=== PATIENT | female | born 1995 | race Caucasian/White ===

== ENCOUNTER 2019-12-16 22:39 | Day surgery (SDC) | payer OTHER ==
[2019-12-16 23:17] VITALS: BP 130/69; TEMP 98.5; BMI 36.1
[2019-12-16] MEDS ORDERED: hydrALAZINE 20 MG/ML VIAL SLOW IVP PRN (23:37)
[2019-12-17 00:14] LABS: Bilirubin Negative (Negative); Blood, Urine Small (Negative); Glucose, Urine (Dipstick) Negative (Negative); Leukocyte Negative (Negative); Nitrite Negative (Negative); Protein, Urine (Dipstick) Negative (Neg-Trace)
[2019-12-17 00:16] LABS: Clarity Clear (Clear)
[2019-12-17 00:20] LABS: Bacteria/HPF 3+ HPF (None Seen); RBC/HPF 0-3 HPF (0-3); Squamous Epithelial 0-3 HPF (0-3)
--- NOTE | 2019-12-17 00:41 | PDOC.FPROB ---
FMR OB H&P: HPI - History of Present Illness Chief Complaint: Brown Discharge Indentification: 24 yo @ 35 wks History of Present Illness: 24 yo comes in with concern of brown discharge when wiping today. Reports having some back pain as well. Reports FM. Denies any ctx. Denies any LOF. Denies any increased urinary frequency or burning with urination. Denies any fever or chills. Denies any n/v. Pt reports being checked thursday. Denies any recent sexual activity Primary Care Physician: Alex FMR OB H&P: Current - Care : 3 Para: 2 Gestational age: 35 wks - OB Labs Blood type: O RH: positive Antibody Screen: negative HIV: negative RPR: negative HepBsAg: negative Rubella: immune Quad screen: unknown Urine drug screen: not done Gonorrhea: negative Chlamydia: negative Pap Smear: normal 1 hour gtt: 132 FMR OB H&P: History - Past Medical History PMH: None - OB History OB History: 2 term - [employer] History [employer] History: Denies any hx of abnormal paps or STD - Surgical History Sx History: Denies - Social History Social History: Denies any smoking, drinking or illicit drug use - Family History Family History: Noncontributory FMR OB H&P: Medications - Current Home Medications: Medication Instructions Recorded Confirmed Type No122/Iron/Folic Acid 1 each PO DAILY 12/16/19 12/16/19 History [ Multi Tablet] Clotrimazole 2% 3 Day Vag Cr 1 appful VAG BID 3 Days #1 tube 12/17/19 Rx [Clotrimazole 2% 3 Day Vaginal Cream] Allergies/Adverse Reactions: Allergies Allergy/AdvReac Type Severity Reaction Status Date / Time No Known Allergies Allergy Verified 12/16/19 23:07 FMR OB H&P: ROS - Review of Systems General: denies: fever/chills, weight/appetite/sleep changes, night sweats ENT: denies: nasal congestion, rhinorrhea Respiratory: denies: cough, congestion, shortness of breath Gastrointestinal: denies: abdominal pain, cramping, nausea, vomiting, diarrhea, constipation Genitourinary (Female): reports: vaginal discharge. denies: incontinence, dysuria, hematuria, vaginal pain, vaginal bleeding, contractions, vaginal pressure Musculoskeletal: denies: pain, tenderness Integumentary: denies: itching, rash Psychological: denies: depression, anxiety FMR OB H&P: Vital Signs - Maternal Vital signs: Vital Signs - First Documented Temp Pulse Resp BP 98.5 F 87 18 130/69 12/16/19 23:05 12/16/19 23:05 12/16/19 23:05 12/16/19 23:05 - Heart Tones Baseline: 140 Variability: moderate Acceleration: present Deceleration: absent Category: category 1 [place] contractions every: None noted FMR OB H&P: Physical Exam - Physical Exam General: NAD, awake, alert and oriented HEENT: normocephalic and atraumatic, grossly normal vision, grossly normal hearing Neck: supple, FROM, trachea midline Heart: RRR, normal S1/S2, no murmurs/rubs/gallops, no edema General: CTAB, no respiratory distress, no wheezing Abdomen: soft, gravid, non-tender, bowel sound present, no masses Musculoskeletal: normal gait and station, FROM in all four extremities Neurological: sensation to pain,touch and proprioception grossly normal Skin: no rash, good tugor, capillary refill <2 seconds Psychiatric: intact recent and remote memory, normal mood and affect - Pelvic Exam Cervix: no masses, no lesions, no blood Deviation from normal: Yellow-brown, odorous discharge noted. No active bleeding noted. FMR OB H&P: Results - Labs Lab results: Laboratory Results - last 24 hr 12/17/19 00:08 Urine Color Yellow Urine Clarity Clear Urine pH 6.5 Ur Specific [place] 1.015 Urine Protein Negative Urine Glucose (UA) Negative Urine Ketones Negative Urine Blood Small A Urine Nitrite Negative Urine Bilirubin Negative Urine Urobilinogen 1.0 Ur Leukocyte Esterase Negative Urine RBC 0-3 Urine WBC 4-6 A Ur Squamous Epith Cells 0-3 Urine Bacteria 3+ A FMR OB H&P: A/P - Problem List (1) Status: Acute (2) Vaginitis Status: Acute Code(s): N76.0 - ACUTE VAGINITIS Disposition: -Cat 1 strip. No ctx or decels noted -Urinalysis ordered due to back pain. Will tx as needed. No CVA tenderness noted Vaginitis -Yellow-brown odorous discharge noted. Likely yeast infection. -VP3 obtained. Will tx as needed. -Px clotrimazole at this time. Discussion: Date/Time: 12/17/19 0039 This H&P was discussed with [] and [] who agree with the above documentation and plan. Addendum - Attending - Attending Attestation Date/Time: 12/17/19 0625 I personally evaluated the patient and discussed the management with Dr. Cr. I agree with the History, Examination, Assessment and Plan documented above.
[2019-12-17] MEDS ORDERED: FLU VACC QS2019-20(6MOS UP)/PF 60 MCG/0.5 ML SYRINGE IM ONE (09:00)
== END 2019-12-17 00:30 | disposition home or self-care (01) ==
LOC: L&D/OP 22:39
PROVIDERS: ATTEND Obstetrics & Gynecology
DX: O23.593 Infection of other part of genital tract in pregnancy, third trimester (principal); Z3A.35 35 weeks gestation of pregnancy
CPT/HCPCS: 81003; 81015; 87480; 87510; 87660; 99285

== ENCOUNTER 2020-01-03 05:30 | Inpatient (IN) | payer OTHER ==
--- NOTE | 2020-01-02 20:48 | PDOC.LDHP ---
Labor and Delivery H&P Chief complaint: scheduled induction HPI: 24 y/o at 37 and 4 weeks with GHTN for term medical induction. Current gestational age (weeks): 37 Due date: 01/20/20 Grav: 3 Para: 2 Current complications: gestational hypertension Abnormal US findings: No Current medications: pre- vitamins Allergies/Adverse Reactions: Allergies Allergy/AdvReac Type Severity Reaction Status Date / Time No Known Allergies Allergy Verified 12/25/19 11:20 Social history: none - Physical Exam Vital signs reviewed and normal: yes General: NAD, resting Heart: RRR Lungs: CTAB Abdomen: gravid Extremeties: no edema FHT: category 1 - Assessment L&D Assessment: medically indicated induction - Plan Plan: admit to L&D, cervical ripening
[~2020-01-03 05:30] MED LIST: Acetaminophen 500 MG TAB PO PRN; Butorphanol Tartrate 1 MG/ML VIAL SLOW IVP PRN; Docusate 100 MG CAP PO PRN; Lactated Ringer's 1,000 ML IV SCH; NS / Oxytocin 40 units/1000ml 1,000 ML IV PRN; NS w/ Oxytocin 10 units 500 ML IV SCH; Ondansetron PF 4 MG/2 ML Vial IVP PRN; Promethazine HCl 25 MG/ML VIAL IM PRN
[2020-01-03] MEDS ORDERED: Carboprost 250 MCG/ML AMP IM PRN (16:05)
[2020-01-03] MEDS ORDERED: hydrALAZINE 20 MG/ML VIAL SLOW IVP PRN ×2 (16:06→23:37)
[2020-01-03] MEDS ORDERED: HYDROcodone/Acetaminophen 5/325 mg Tablet PO PRN ×3 (16:07→23:37)
[2020-01-03] MEDS ORDERED: Lidocaine 1% (PF) 30 ML VIAL SC PRN (16:08)
[2020-01-03 17:01] VITALS: BMI 36.8
[2020-01-03] MEDS ORDERED: Fentanyl 4 mcg/Bup 0.1% Cadd 100 ML ONE (17:16)
[2020-01-03 17:19] LABS: Hemoglobin 11.6 g/dL (12.0-16.0); Mean Corpuscular HGB CONC 34.1 g/dL (32.0-36.0); Mean Corpuscular Hemoglobin 28.2 pg (27.0-31.0); Mean Corpuscular Volume 82.7 fL (78.0-98.0); Mean Platelet Volume 10.3 fL (7.4-10.4); Platelet Count 168 thou/uL (130-400); RBC Distribution Width 14.2 % (11.5-14.5); Red Blood Cell (RBC) Count 4.12 mill/uL (4.20-5.40); White Blood Cell (WBC) Count 9.2 thou/uL (4.8-10.8)
[2020-01-03 17:52] LABS: HBSAg Index 0.27 S/CO (0-0.99); Hep B Surf Ag Non-Reactive S/CO (NonReactive); Syphilis Antibody Nonreactive (Nonreactive); Syphilis Antibody Index 0.02 S/CO (<1.00 Non-Reactive)
[2020-01-03] MEDS: NS / Oxytocin 40 units/1000ml 1,000 ML IV SCH ×2 (21:20→22:30)
[2020-01-03] MEDS ORDERED: Misoprostol 200 MCG TAB ONE ×2 (21:33→21:34)
[2020-01-03] MEDS ORDERED: Milk Of Magnesia 30 ML UDCUP PO PRN (23:37)
[2020-01-03] MEDS ORDERED: Lanolin Ointment 7 GM TUBE TOP PRN (23:37)
[2020-01-03] MEDS ORDERED: Benzocaine-Menthol 82.5 ML CAN TOP PRN (23:37)
[2020-01-03] MEDS ORDERED: Zolpidem Tartrate 5 MG TAB PO PRN (23:37)
[2020-01-03] MEDS ORDERED: Methylergonovine 0.2 MG/ML VIAL IM PRN (23:37)
[2020-01-03] MEDS ORDERED: diphenhydrAMINE 25 MG CAP PO PRN (23:37)
[2020-01-03] MEDS ORDERED: Bisacodyl 10 MG SUPP PR PRN (23:37)
[2020-01-03] MEDS ORDERED: Promethazine HCl 25 MG/ML VIAL IM PRN (23:37)
[2020-01-03] MEDS ORDERED: Preparation H Ointment 28 GM TUBE PR PRN (23:37)
[2020-01-03] MEDS ORDERED: Ondansetron PF 4 MG/2 ML Vial IVP PRN (23:37)
[2020-01-03] MEDS ORDERED: Docusate Calcium (SURFAK) 240 MG CAP PO SCH (23:45)
[2020-01-03] MEDS ORDERED: Ibuprofen 800 MG TAB PO SCH (23:45)
[2020-01-04] MEDS: Ibuprofen 800 MG TAB PO SCH ×3 (05:50→21:54)
[2020-01-04 06:28] LABS: Hemoglobin 10.8 g/dL (12.0-16.0); Mean Corpuscular HGB CONC 33.7 g/dL (32.0-36.0); Mean Corpuscular Hemoglobin 27.7 pg (27.0-31.0); Mean Corpuscular Volume 82.4 fL (78.0-98.0); Mean Platelet Volume 10.1 fL (7.4-10.4); Platelet Count 166 thou/uL (130-400); RBC Distribution Width 14.1 % (11.5-14.5); Red Blood Cell (RBC) Count 3.88 mill/uL (4.20-5.40); White Blood Cell (WBC) Count 16.2 thou/uL (4.8-10.8)
[2020-01-04] MEDS ORDERED: Adacel (T-DAP) 0.5 ML SYRINGE IM ONE (09:00)
[2020-01-04] MEDS ORDERED: Varicella virus, LIVE 0.5 ML VIAL SC ONE (09:00)
[2020-01-04] MEDS ORDERED: Measles/Mumps/Rubella 10 MCG/0.5 ML VIAL SC ONE (09:00)
[2020-01-04] MEDS: Ferrous Sulfate 325 MG TAB PO SCH ×2 (09:08→16:23)
[2020-01-04] MEDS: Docusate Calcium (SURFAK) 240 MG CAP PO SCH ×2 (09:09→21:54)
[2020-01-04] MEDS: Prenatal Vitamin 1 TAB PO SCH (09:09)
[2020-01-04] MEDS ORDERED: Diphenoxylate HCl/Atropine Tablet PO PRN ×2 (16:05→16:06)
[2020-01-04] MEDS ORDERED: Ibuprofen 800 MG TAB PO PRN (16:07)
[2020-01-04] MEDS ORDERED: HYDROcodone/Acetaminophen 5/325 mg Tablet PO PRN (16:07)
[2020-01-04] MEDS ORDERED: Misoprostol 200 MCG TAB PR PRN (16:08)
--- NOTE | 2020-01-04 18:01 | PDOC.PP ---
Post Progress Note Post Day #: 1 PO intake tolerated: yes Flatus: yes Ambulation: yes Vital Signs (12 hours) Temp Pulse Resp BP Pulse Ox 01/04/20 16:40 98.6 F 81 16 115/59 L 100 01/04/20 11:50 98.3 F 77 20 116/59 L 01/04/20 08:15 99 01/04/20 07:45 98.5 F 80 20 115/58 L 99 Weight Weight 228 lb Result Diagrams: 01/04/20 06:00 Additional Labs: Post Labs Blood Type O POSITIVE 01/03/20 17:25 Hep Bs Antigen Non-Reactive S/CO (NonReactive) 01/03/20 17:06 - Assessment/Plan Today, I had a phone conversation with the patient who appears to be doing very well. She is breast and formula feeding. Minimal lochia. Her mood remains normal. She is looking forward to DC to home in the morning. F/U in 2 weeks with me. Hb/Hct are stable this morning.
[2020-01-05] MEDS: Ibuprofen 800 MG TAB PO SCH (05:06)
[2020-01-05] MEDS: Ferrous Sulfate 325 MG TAB PO SCH (07:43)
[2020-01-05] MEDS: Prenatal Vitamin 1 TAB PO SCH (08:38)
[2020-01-05] MEDS: Docusate Calcium (SURFAK) 240 MG CAP PO SCH (08:38)
[2020-01-05 08:40] VITALS: BP 114/55; TEMP 98.1
== END 2020-01-05 11:23 | disposition home or self-care (01) | DRG 807 ==
LOC: L&D 15:58 → 3SW 23:28
PROVIDERS: ADMIT Obstetrics & Gynecology; ATTEND Obstetrics & Gynecology
PROC: 10E0XZZ Delivery of Products of Conception, External Approach (ICD-10-PCS; principal; 2020-01-03)
PROC: 3E033VJ Introduction of Other Hormone into Peripheral Vein, Percutaneous Approach (ICD-10-PCS; 2020-01-03)
DX: O13.4 Gestational [pregnancy-induced] hypertension without significant proteinuria, complicating childbirth (principal); Z37.0 Single live birth; Z3A.37 37 weeks gestation of pregnancy
CPT/HCPCS: 36415; 51702; 85027; 86780; 86850; 86900; 86901; 87340; J2590